=== PATIENT | female | born 1985 | race Caucasian/White ===

== ENCOUNTER → 2017-02-22 | Outpatient (CLI) | payer OTHER ==
--- NOTE | 2017-02-22 10:27 | KCIC ---
EXAM: Left breast sonogram. HISTORY: 31-year-old recently lactating female presents with a left breast lump. TECHNIQUE: Sonographic imaging of the left breast targeted to the site of palpable concern was performed. COMPARISON: 09/08/2014. FINDINGS: There is a 9 mm circumscribed oval hyperechoic lesion without internal blood flow at the 2:00 position of the left breast 9 cm from the nipple, corresponding with the palpable abnormality of concern. No additional lesion is seen. IMPRESSION: 1. 9 mm benign circumscribed oval hyperechoic lesion within the 2:00 position of the left breast at the site of palpable concern. The imaging appearance favors a lipoma. Given the lactating status of the patient, the possibility of a galactocele is not completely excluded. However, the sonographic appearance does not favor this etiology. 2. No suspicious sonographic finding. Continued clinical follow-up of palpable abnormalities is recommended. 3. BI-RADS Category 2: Benign finding(s). Electronically signed by: Amy Sykes MD (02/22/2017 10:24 AM) [email or web address]
== END | disposition home or self-care (01) ==
LOC: KCIC US 09:50
PROVIDERS: ATTEND Nurse Practitioner Family
DX: N63 Unspecified lump in breast (principal); N64.89 Other specified disorders of breast
CPT/HCPCS: 76641

== ENCOUNTER → 2018-01-17 | Outpatient (CLI) | payer OTHER ==
[~2018-01-17] MED LIST: GADOBUTROL 10 MMOL/10 ML VIAL IV
== END | disposition home or self-care (01) ==
LOC: KCIC MRI 14:28
DX: G35 Multiple sclerosis (principal); M50.223 Other cervical disc displacement at C6-C7 level; M50.222 Other cervical disc displacement at C5-C6 level; M25.78 Osteophyte, vertebrae; M48.02 Spinal stenosis, cervical region
CPT/HCPCS: 70553; 72156

== ENCOUNTER → 2018-04-14 | Outpatient (CLI) | payer OTHER ==
[~2018-04-14] MED LIST changes: +ASPI-630 PO; -GADOBUTROL 10 MMOL/10 ML VIAL IV; +LABE100T5 PO
--- NOTE | 2018-04-14 09:48 | KCIC ---
ABDOMEN LTD dated 04/14/2018 9:00 AM. Comparison: None Clinical Indication: Right upper quadrant pain . Findings: The liver is homogeneous in echotexture with no evidence of focal hepatic mass. Intrahepatic and extra hepatic biliary ducts are normal in caliber. The common bile duct measures 2 mm. The gallbladder is normal in size and echogenicity without gallbladder wall thickening or pericholecystic fluid. No gallstones are seen. Right kidney measures 11.9 cm in length without hydronephrosis. Left kidney was not imaged. Pancreas, aorta and IVC not well evaluated due to overlying bowel gas. No significant ascites. IMPRESSION: No acute sonographic abnormality. Electronically signed by: Mekhi Espinoza MD (04/14/2018 9:45 AM) [email or web address]
== END | disposition home or self-care (01) ==
LOC: KCIC US 08:35
PROVIDERS: ATTEND Nurse Practitioner Family
DX: R10.11 Right upper quadrant pain (principal)
CPT/HCPCS: 76705

== ENCOUNTER → 2018-07-14 | Outpatient (CLI) | payer OTHER ==
[~2018-07-14] MED LIST changes: +IOHEXOL 240 MG/ML 50ML VIAL. PO ONE; +IOHEXOL 300 MG/ML 100ML VIAL. IV ONE
--- NOTE | 2018-07-14 14:57 | RAD ---
EXAM: Abdomen and pelvis CT with intravenous contrast. HISTORY: Left lower quadrant pain. TECHNIQUE: Computed tomographic images of the abdomen and pelvis were obtained following the administration of 75 cc Omnipaque 300 intravenous contrast. Multiplanar reformatting was performed. *One or more of the following individualized dose reduction techniques were utilized for this examination: 1. Automated exposure control. 2. Adjustment of the mA and/or kV according to patient size. 3. Use of iterative reconstruction technique. COMPARISON: None. FINDINGS: Evaluation of the lower thorax is unremarkable. No hepatic lesion is seen. The gallbladder, pancreas and adrenal glands are unremarkable. The spleen is enlarged, measuring 17.5 cm. There is right nephrolithiasis. The largest right renal stone measures 3 mm. There is no evidence of obstructive uropathy. There is a 5 mm cyst or angiomyolipoma within the inferior lateral left kidney. The cecum is positioned within the left lateral abdomen. The appendix is normal in appearance. No abnormally thickened or dilated loop of bowel is seen. The uterus is unremarkable. There is a 2.2 cm right ovarian cyst. There is trace pelvic free fluid. There is no lymphadenopathy. There is no suspicious osseous lesion. IMPRESSION: 1. Splenomegaly. 2. Right nephrolithiasis and suspected tiny left renal cyst or angiomyolipoma. 3. 2.2 cm right ovarian cyst. 4. 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 Electronically signed by: Amy Sykes MD (07/14/2018 2:53 PM) [email or web address]
== END | disposition home or self-care (01) ==
LOC: CT 12:57
PROVIDERS: ATTEND Family Medicine
DX: N20.0 Calculus of kidney (principal); N83.291 Other ovarian cyst, right side; R16.1 Splenomegaly, not elsewhere classified
CPT/HCPCS: 74177; Q9966; Q9967

== ENCOUNTER → 2019-03-25 | Outpatient (CLI) | payer OTHER ==
[~2019-03-25] MED LIST changes: +GADOTERATE 7.5 MMOL/15ML VIAL. IVP ONE; -IOHEXOL 240 MG/ML 50ML VIAL. PO ONE; -IOHEXOL 300 MG/ML 100ML VIAL. IV ONE
--- NOTE | 2019-03-25 10:06 | KCIC ---
BRAIN WO/W CONTRAST History: Multiple sclerosis. Fatigue and numbness in extremities. Technique: Multiplanar, multi sequential pre and postcontrast MR imaging was performed of the brain. Contrast: 20 mL Dotarem Comparison: January 17, 2018 Findings: Several T2/FLAIR hyperintense lesions within the deep and periventricular white matter with involvement of the corpus callosum, unchanged compared to prior. No new or enhancing lesions. No acute infarct. No intracranial hemorrhage. No mass effect. No hydrocephalus. Small incidental pineal cyst, unchanged. Imaged orbits are unremarkable. Imaged paranasal sinuses and mastoid air cells are clear. Impression: 1. Multifocal white matter lesions compatible with history of multiple sclerosis. No new or enhancing lesions. Electronically signed by: Yon Helms DO (03/25/2019 10:03 AM) [facility]
--- NOTE | 2019-03-25 10:13 | KCIC ---
CERVICAL SPINE WO/W CONTRAST History: Multiple sclerosis. Fatigue and numbness in extremities. Technique: Multiplanar, multi sequential pre and postcontrast MR imaging was performed of the cervical spine. Contrast: 20 mL Dotarem Comparison: January 17, 2018 Findings: Mild motion degraded evaluation of the cervical spinal cord. No definite cervical cord lesion. No pathologic enhancement. Reversal the normal cervical lordosis centered at C5-C6. Mild multilevel degenerative disc changes most prominent C5-C6 and C6-C7. Small C6-C7 central disc protrusion, slightly decreased. Mild cord flattening. No canal narrowing. No significant neural foraminal narrowing. Normal vertebral body height. No fracture. Mild decreased diffuse T1 marrow signal, likely within normal range. Impression: 1. No definite evidence of demyelinating disease within the cervical spinal cord allowing for motion artifact. 2. Mild cervical spondylosis most prominent C5-C6 and C6-C7 with mild cord flattening. Electronically signed by: Yon Helms DO (03/25/2019 10:10 AM) [facility]
== END | disposition home or self-care (01) ==
LOC: KCIC MRI 07:48
DX: M47.812 Spondylosis without myelopathy or radiculopathy, cervical region (principal); M50.322 Other cervical disc degeneration at C5-C6 level; M50.223 Other cervical disc displacement at C6-C7 level; G93.89 Other specified disorders of brain; I10 Essential (primary) hypertension
CPT/HCPCS: 70553; 72156; A9575

== ENCOUNTER → 2019-07-14 | Outpatient (CLI) | payer MEDICAID, OTHER ==
[~2019-07-14] MED LIST changes: -GADOTERATE 7.5 MMOL/15ML VIAL. IVP ONE
--- NOTE | 2019-07-14 15:55 | KCIC ---
STUDY: ULTRASOUND PELVIS COMPLETE HISTORY: Pelvic pain. COMPARISON: Correlation is made to the CT abdomen/pelvis from 07/14/2018. TECHNIQUE: Pelvic ultrasound was performed with a transabdominal probe. FINDINGS: The uterus measures 9.5 x 5.1 x 3.8 cm. The endometrium is measured at up to 0.6 cm in thickness. No uterine mass or discrete endometrial abnormality is identified. The right ovary measures 2.1 x 2 x 1.0 cm. The left ovary measures 2.8 x 2 x 1.3 cm. Normal blood flow is maintained to both ovaries. No suspicious ovarian mass or cyst. No free fluid within the deep pelvis. Scattered nabothian cysts noted the largest of which measures up to 0.9 cm. IMPRESSION: Essentially unremarkable pelvic ultrasound. No discrete abnormality to account for the patient's pain. Electronically signed by: TERRENCE ROMERO MD (07/14/2019 3:52 PM) [facility]
--- NOTE | 2019-07-14 18:27 | KCIC ---
Study: LUMBAR SPINE 2-3V Indication: Chronic low back pain. Comparison: Correlation is made to the CT abdomen/pelvis from 07/14/2018 Findings: 5 nonrib-bearing lumbar vertebral elements. Lumbar lordosis is maintained, as is vertebral body height and alignment. Faint rightward curvature. Mild disc space narrowing at L5-S1. No advanced facet degeneration. Intrarenal stones noted on the right. Impression: 1. No change in vertebral body height or alignment. Redemonstrated mild disc space narrowing at L5-S1. No advanced facet degeneration. 2. Intrarenal stones on the right which were present on the prior CT as well. Electronically signed by: TERRENCE ROMERO MD (07/14/2019 6:24 PM) [facility]
== END | disposition home or self-care (01) ==
LOC: KCIC US 14:43
PROVIDERS: ATTEND Nurse Practitioner Family
DX: N88.8 Other specified noninflammatory disorders of cervix uteri (principal); M48.07 Spinal stenosis, lumbosacral region; G89.29 Other chronic pain
CPT/HCPCS: 72100; 76856

== ENCOUNTER → 2020-04-12 | Outpatient (CLI) | payer OTHER ==
--- NOTE | 2020-04-12 16:18 | KCIC ---
Bilateral diagnostic digital mammograms with 3-D tomosynthesis: Reason for examination: Right lateral breast pain radiating to the nipple for 3 to 4 months. Comparison is made to previous study dated 09/08/2014. Bilateral mammograms in CC and oblique projections were obtained with 2-D imaging and 3-D tomosynthesis imaging on a Siemens Inspiration unit and reviewed on the workstation. Interpretation was made with the benefit of CAD. The skin and nipples show no abnormalities. No abnormal axillary lymph nodes are seen. The breast parenchyma shows scattered fatty and fibroglandular density. (Breast density: Category B.) There continues to be some asymmetric parenchyma in the upper outer quadrant which has shown some interval involution. There are no new dominant masses, suspicious calcifications or architectural distortion. Impression: No evidence of malignancy. Ultrasound to follow. BI-RAD Category 0: Incomplete. Needs additional imaging evaluation. Right breast ultrasound: Ultrasound examination of the right breast was performed with attention to the upper outer quadrant and area of clinical concern and axilla. At the 9:00 position 11 cm from the nipple in the area of clinical concern, there appears to be a 1.5 x 1.1 cm hyperechoic lesion consistent with a lipoma. There is a small 3.9 mm hypoechoic fibrocystic type lesion at the 9:00 position 6 cm from the nipple. There is also a small 5.9 mm hypoechoic fibrocystic type lesion at the 11:00 position 3 cm from the nipple. No suspicious-appearing nodules are seen. No abnormal appearing lymph nodes are seen in the right axilla. IMPRESSION: Small benign-appearing fibrocystic lesions at the 9:00 and 11:00 positions. Lipoma at the 9:00 position 11 cm from the nipple measuring 1.5 cm in size. No suspicious abnormalities are seen. Recommend 6 month follow-up with ultrasound. BI-RADS Category 3: Probably Benign. "Our facility is accredited by the [employer] Mammography Program." This patient's information has been entered into a reminder system for the patient to be notified with the results of her examination and a target date for the next mammogram. Electronically signed by: Olamide Dye MD (04/12/2020 4:16 PM) [id number]
== END | disposition home or self-care (01) ==
LOC: KCIC MAMMO 12:42
PROVIDERS: ATTEND Nurse Practitioner Family
DX: N64.89 Other specified disorders of breast (principal); D17.79 Benign lipomatous neoplasm of other sites; N64.4 Mastodynia
CPT/HCPCS: 76641; 77066; G0279; 77062

== ENCOUNTER → 2020-08-01 | Outpatient (CLI) | payer OTHER | LOC: LAB 14:05 | PROVIDERS: ATTEND Internal Medicine Pulmonary Disease | DX: R51.9 Headache, unspecified (principal); R11.2 Nausea with vomiting, unspecified; R53.81 Other malaise; R19.7 Diarrhea, unspecified; R68.89 Other general symptoms and signs; Z20.828 Contact with and (suspected) exposure to other viral communicable diseases | CPT/HCPCS: U0003 ==

== ENCOUNTER → 2020-08-15 | Outpatient (CLI) | payer OTHER | LOC: LAB 15:07 | PROVIDERS: ATTEND Internal Medicine Pulmonary Disease | DX: U07.1 COVID-19 (principal) | CPT/HCPCS: U0003 ==

== ENCOUNTER → 2020-08-26 | Outpatient (CLI) | payer OTHER | LOC: LAB 08:59 | PROVIDERS: ATTEND Internal Medicine Pulmonary Disease | DX: U07.1 COVID-19 (principal) | CPT/HCPCS: U0003 ==

== ENCOUNTER → 2020-10-13 | Outpatient (CLI) | payer OTHER ==
[2020-10-13 16:14] LABS: BASO # 0.1 x10^3/uL (0.0-0.2); BASO % 1 % (0-3); EOS # 0.2 x10^3/uL (0.0-0.7); EOS % 2 % (0-3); HEMATOCRIT 38.8 % (36.0-47.0); HEMOGLOBIN 12.7 g/dL (12.0-15.5); LYMPH # 2.2 x10^3/uL (1.0-4.8); LYMPH % 21 % (24-48); MEAN CORPUSCULAR HEMOGLOBIN 27 pg (25-35); MEAN CORPUSCULAR HGB CONC 33 g/dL (31-37); MEAN CORPUSCULAR VOLUME 82 fL (79-100); MONO # 0.7 x10^3/uL (0.0-1.1); MONO % 6 % (0-9); NEUT # 7.2 x10^3/uL (1.8-7.7); NEUT % 70 % (31-73); PLATELET COUNT 247 x10^3/uL (140-400); RED CELL DISTRIBUTION WIDTH 14.2 % (11.5-14.5); WHITE BLOOD COUNT 10.3 x10^3/uL (4.0-11.0)
[2020-10-13 16:32] LABS: ALBUMIN 3.8 g/dL (3.4-5.0); CALCIUM 9.1 mg/dL (8.5-10.1); CREATININE 0.9 mg/dL (0.6-1.0); GFR 70.8; TOTAL BILIRUBIN 0.2 mg/dL (0.2-1.0); TOTAL PROTEIN 7.8 g/dL (6.4-8.2)
== END ==
LOC: LAB 15:50
PROVIDERS: ATTEND Nurse Practitioner Family
DX: G35 Multiple sclerosis (principal)
CPT/HCPCS: 36415; 80053; 84443; 85025

== ENCOUNTER → 2020-12-09 | Outpatient (CLI) | payer OTHER ==
--- NOTE | 2020-12-09 11:04 | KCIC ---
EXAM: Chest, 2 views. HISTORY: Cough. COMPARISON: None. FINDINGS: 2 views of the chest are obtained. There is no infiltrate, pleural effusion or pneumothorax . The heart is normal in size. IMPRESSION: No acute pulmonary finding. Electronically signed by: Amy Sykes MD (12/09/2020 11:02 AM) [id number]
== END ==
LOC: KCIC 10:41
PROVIDERS: ATTEND Nurse Practitioner Family
DX: R05 Cough (principal); Z86.16 Personal history of COVID-19; Z87.891 Personal history of nicotine dependence
CPT/HCPCS: 71046

== ENCOUNTER → 2020-12-22 | Outpatient (CLI) | payer OTHER ==
[~2020-12-22] MED LIST changes: +IOHEXOL 300 MG/ML 100ML VIAL. IV ONE
[2020-12-22 08:59] LABS: BASO % 0 % (0-3); EOS # 0.1 x10^3/uL (0.0-0.7); EOS % 2 % (0-3); HEMOGLOBIN 12.6 g/dL (12.0-15.5); LYMPH # 1.6 x10^3/uL (1.0-4.8); LYMPH % 26 % (24-48); MEAN CORPUSCULAR HEMOGLOBIN 28 pg (25-35); MEAN CORPUSCULAR HGB CONC 34 g/dL (31-37); MEAN CORPUSCULAR VOLUME 81 fL (79-100); MONO # 0.3 x10^3/uL (0.0-1.1); MONO % 5 % (0-9); NEUT % 67 % (31-73); PLATELET COUNT 207 x10^3/uL (140-400); RED BLOOD COUNT 4.55 x10^6/uL (3.50-5.40); RED CELL DISTRIBUTION WIDTH 13.5 % (11.5-14.5)
[2020-12-22 09:17] LABS: ALBUMIN 3.8 g/dL (3.4-5.0); ALBUMIN/GLOBULIN RATIO 1.1 (1.0-1.7); CALCIUM 8.8 mg/dL (8.5-10.1); CREATININE 0.9 mg/dL (0.6-1.0); GFR 70.8; POTASSIUM 4.2 mmol/L (3.5-5.1); TOTAL BILIRUBIN 0.3 mg/dL (0.2-1.0); TOTAL PROTEIN 7.3 g/dL (6.4-8.2)
[2020-12-22 09:31] LABS: FREE T4 0.93 ng/dL (0.76-1.46); THYROID STIM HORMONE (TSH) 1.964 uIU/mL (0.358-3.74)
--- NOTE | 2020-12-22 10:17 | RAD ---
CT of the chest with contrast Indication: [Shortness of breath] Comparison study: [Chest radiograph December 08, 2020] Technique: Multidetector CT imaging of the chest was performed following the administration of intrav enous contrast. Findings: Heart size is normal. No significant pericardial effusion is seen. No pathologic mediastinal adenopa thy is identified. No focal consolidation or infiltrate is seen. No pneumothorax or pleural effusion is seen. No acute osseous abnormality is identified. Partially visualized calcification in the right kidney may reflect a kidney stone. Otherwise limited visualization of the upper abdomen is unremarkab le. Impression: No evidence of acute cardiopulmonary process. CT DOSING PQRS STATEMENT: One or more of the following individualized dose reduction techniques were utilized for this examinat ion: 1. Automated exposure control 2. Adjustment of the mA and/or kV according to patient size 3. Use of iterative reconstruction technique Electronically signed by: Moe Urbano MD (12/22/2020 10:15 AM) [id number]
== END ==
LOC: CT 08:24
PROVIDERS: ATTEND Nurse Practitioner Family
DX: R53.83 Other fatigue (principal); R06.02 Shortness of breath
CPT/HCPCS: 36415; 71260; 80053; 82306; 82607; 82746; 83540; 83550; 84439; 84443; 85025; Q9967

== ENCOUNTER → 2020-12-27 | Outpatient (CLI) | payer OTHER ==
[~2020-12-27] MED LIST changes: -IOHEXOL 300 MG/ML 100ML VIAL. IV ONE
--- NOTE | 2020-12-27 16:19 | KCIC ---
Clinical indications: Enlarged thyroid gland.. Findings: The longitudinal and AP and transverse dimensions of the right lobe of the thyroid gland ar e 5.5 cm x 1.7 cm x 2.2 cm respectively. The right lobe is homogeneous in appearance. The longitudinal and AP and transverse dimensions of the left lobe are 4.4 cm x 1.6 cm x 1.6 cm respe ctively. The left lobe is homogeneous in appearance. The isthmus is homogeneous in appearance and measures 3.5 mm in thickness. Impression: Mild enlargement of the thyroid gland. No thyroid mass. Within the midline of the neck, there is a subcutaneous hyperechoic solid nodule measuring 16 mm x 7 mm x 11 mm in size consistent with a lipoma. No abnormal color Doppler flow is seen within it. Clinic al follow-up with regard to any growth in size is recommended however. Reference: ACR thyroid imaging, reporting and data system (TI-RADS): White paper of the ACR TI-RADS c ommittee; J[employer]RNAL [employer]; volume 14, issue 5, pages 587-595 (December 2016) Electronically signed by: Rustam Rios MD (12/27/2020 4:17 PM) [id number]
== END ==
LOC: KCIC US 15:25
PROVIDERS: ATTEND Nurse Practitioner Family
DX: E04.9 Nontoxic goiter, unspecified (principal)
CPT/HCPCS: 76536

== ENCOUNTER → 2021-09-21 | Outpatient (CLI) | payer OTHER ==
--- NOTE | 2021-09-21 09:38 | RAD ---
INDICATION: Reason: right flank pain / Spl. Instructions: / History: COMPARISON: June 2018 TECHNIQUE: Axial CT images were obtained through the abdomen and pelvis without intravenous contrast. One or more of the following individualized dose reduction techniques were utilized for this examinat ion: 1. Automated exposure control; 2. Adjustment of the mA and/or kV according to patient size; 3 . Use of iterative reconstruction technique. FINDINGS: Fat-containing inguinal hernias. Small fat-containing umbilical hernia. Vascular: No abdominal aortic aneurysm. Hepatobiliary: Liver appears enlarged. Pancreas: No peripancreatic edema. Spleen: Spleen is enlarged measuring up to 20 cm. Renal/Bladder: Subcentimeter low-density lesion in the left kidney which could be from a small angiom yolipoma. Bilateral nonobstructive renal stones are seen. Urinary bladder is partially distended. Mil d right-sided hydronephrosis and hydroureter. There is a possible 1 mm calcification at the right dis nigel ureter which could be from a tiny stone. Gastrointestinal: Tortuosity of the mesentery within the upper abdomen including the region of the guerrero perior mesenteric vessels. There is also repeat demonstration of atypical configuration of the bowel loops with the colon located at the left-side of the abdomen. This was also seen on prior. This can b e a congenital finding. Suspected appendix does not appear inflamed. Mild degenerative changes the sp ine. IMPRESSION: * Mild right-sided hydronephrosis and hydroureter with a suspected 1 mm right ureter stone. 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 * Splenomegaly again seen. Electronically signed by: Christiano Reyna MD (09/21/2021 9:36 AM) [id number]
== END ==
LOC: CT 08:52
PROVIDERS: ATTEND Nurse Practitioner Family
DX: R16.1 Splenomegaly, not elsewhere classified (principal); N13.30 Unspecified hydronephrosis; K42.9 Umbilical hernia without obstruction or gangrene; N28.89 Other specified disorders of kidney and ureter; M47.819 Spondylosis without myelopathy or radiculopathy, site unspecified
CPT/HCPCS: 74176

== ENCOUNTER → 2021-10-13 | Outpatient (CLI) | payer OTHER ==
[~2021-10-13] MED LIST changes: +IOHEXOL 240 MG/ML 50ML VIAL. PO ONE; +IOHEXOL 300 MG/ML 100ML VIAL. IV ONE
[2021-10-13 07:53] LABS: BASO # 0.1 x10^3/uL (0.0-0.2); BASO % 1 % (0-3); EOS # 0.1 x10^3/uL (0.0-0.7); EOS % 1 % (0-3); HEMATOCRIT 36.4 % (36.0-47.0); HEMOGLOBIN 11.9 g/dL (12.0-15.5); LYMPH # 1.4 x10^3/uL (1.0-4.8); LYMPH % 23 % (24-48); MEAN CORPUSCULAR HEMOGLOBIN 27 pg (25-35); MEAN CORPUSCULAR HGB CONC 33 g/dL (31-37); MEAN CORPUSCULAR VOLUME 82 fL (79-100); MONO # 0.3 x10^3/uL (0.0-1.1); MONO % 5 % (0-9); NEUT # 4.2 x10^3/uL (1.8-7.7); NEUT % 69 % (31-73); PLATELET COUNT 194 x10^3/uL (140-400); RED BLOOD COUNT 4.46 x10^6/uL (3.50-5.40); RED CELL DISTRIBUTION WIDTH 14.4 % (11.5-14.5); WHITE BLOOD COUNT 6.2 x10^3/uL (4.0-11.0)
[2021-10-13 08:26] LABS: ALBUMIN 3.8 g/dL (3.4-5.0); CALCIUM 8.7 mg/dL (8.5-10.1); CREATININE 0.9 mg/dL (0.6-1.0); GFR 70.5; POTASSIUM 4.3 mmol/L (3.5-5.1); TOTAL BILIRUBIN 0.3 mg/dL (0.2-1.0); TOTAL PROTEIN 7.5 g/dL (6.4-8.2)
[2021-10-13 08:29] LABS: FREE T4 0.86 ng/dL (0.76-1.46); THYROID STIM HORMONE (TSH) 1.913 uIU/mL (0.358-3.74)
--- NOTE | 2021-10-13 09:53 | RAD ---
CT CHEST+ABD+PELVIS W History: Dyspnea. Left upper quadrant abdominal pain. Technique: CT of the chest, abdomen and pelvis were performed with intravenous contrast. Coronal and sagittal reconstructions were performed. Exposure: One or more of the following individualized dose reduction techniques were utilized for thi s examination: 1. Automated exposure control 2. Adjustment of the mA and/or kV according to patient size 3. Use of iterative reconstruction technique. Comparison: CT abdomen and pelvis September 21, [address] December 22, 2020. CT abdomen and pelvis No vember 2017. Findings: Chest: No pathologic lymphadenopathy. No consolidation or pleural effusion. No pneumothorax. Minimal oral contrast noted within the distal esophagus likely related to reflux. 3 mm right middle lobe anterior pleural-based nodule (series 2 image 29), unchanged compared to 2018 and likely benign given stability over time. Abdomen and pelvis: Hepatic steatosis. The liver is enlarged measures 20.8 cm. The spleen is enlarged measures 18.8 cm, similar compared to prior. The adrenal glands, pancreas and gallbladder are unrema rkable. No biliary ductal dilatation. Nonobstructing right punctate intrarenal calculus. No hydronephrosis. 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 Normal appearance of the urinary bladder. Cecum is positioned within the left lower abdomen, unchanged. Normal appendix. No evidence of bowel o bstruction. There is swirling of the upper mesenteric vessels including the superior mesenteric vein and branches, unchanged. Oral contrast passes to the level of the colon. No pathologic lymphadenopath y. No ascites. Bones: No pathologic osseous lesions. Impression: Chest CT: 1. No acute thoracic pathology. Abdomen and pelvis CT: 1. No acute abdominal or pelvic pathology. 2. Hepatomegaly with steatosis. 3. Stable splenomegaly. 4. Unchanged abnormal configuration of bowel with swirling of the upper mesenteric vessels. No evide nce of bowel obstruction. 5. Punctate nonobstructing right intrarenal calculus. No hydronephrosis. Electronically signed by: Yon Helms DO (10/13/2021 9:51 AM) [facility]
== END ==
LOC: CT 07:35
PROVIDERS: ATTEND Family Medicine
DX: K76.0 Fatty (change of) liver, not elsewhere classified (principal); R16.2 Hepatomegaly with splenomegaly, not elsewhere classified; N20.0 Calculus of kidney; R91.1 Solitary pulmonary nodule; R53.83 Other fatigue; D17.71 Benign lipomatous neoplasm of kidney
CPT/HCPCS: 36415; 71260; 74177; 80053; 84439; 84443; 85025; Q9966; Q9967